=== PATIENT | female | born 1955 | race Native Hawaiian/Other Pacific Islander ===

== ENCOUNTER 2017-10-12 10:17 | Outpatient (CLI) | payer BC | END 2017-10-12 11:20 | disposition home or self-care (01) | LOC: MAMMO 10:17 | DX: Z12.31 Encounter for screening mammogram for malignant neoplasm of breast (principal) ==

== ENCOUNTER 2018-10-17 09:38 | Outpatient (CLI) | payer BC | END 2018-10-17 19:21 | disposition home or self-care (01) | LOC: MAMMO 09:38 | DX: Z12.31 Encounter for screening mammogram for malignant neoplasm of breast (principal) ==

== ENCOUNTER 2019-11-25 14:01 | Outpatient (CLI) | payer BC | END 2019-11-25 19:37 | disposition home or self-care (01) | LOC: MAMMO 14:01 | DX: N64.4 Mastodynia (principal); Z13.820 Encounter for screening for osteoporosis; N95.8 Other specified menopausal and perimenopausal disorders ==

== ENCOUNTER 2022-01-21 09:53 | Outpatient (CLI) | payer BC | END 2022-01-21 19:52 | disposition home or self-care (01) | LOC: MAMMO 09:53 | PROVIDERS: ATTEND Obstetrics & Gynecology | DX: Z12.31 Encounter for screening mammogram for malignant neoplasm of breast (principal) ==